=== PATIENT | male | born 1985 | race Caucasian/White ===

== ENCOUNTER → 2022-06-14 | Emergency (ER) | payer BC ==
[~2022-06-14] VITALS: Ht 175.3 cm; Wt 90.9 kg
[~2022-06-14] MED LIST: ATIVAN 0.50.5 MG/TAB PO; NO HOME MEDICATIONS; VITAMINS
[2022-06-14 17:40] VITALS: BP 141/94; PULSE 93; TEMP 98
[2022-06-14 18:23] LABS: BASO % 0.5 % (0.0-2.0); EOS # 0.1 K/mm3 (0.0-0.7); EOS % 1.4 % (0.0-4.0); GRAN # 4.4 K/mm3 (1.4-6.5); GRAN % 59.7 % (42.2-75.2); HEMATOCRIT 43.2 % (42.0-52.0); HEMOGLOBIN 15.4 g/dl (13.5-18.0); LYMPH # 2.1 K/mm3 (1.2-3.4); LYMPH % 28.4 % (20.0-51.0); MEAN CELL VOLUME 93 fl (80.0-100.0); MEAN CORPUSCULAR HEMOGLOBIN 33 pg (27-31); MEAN CORPUSCULAR HGB CONC 36 g/dl (33.0-37.0); MEAN PLATELET VOLUME 9.4 fl (7.4-10.4); MONO # 0.7 K/mm3 (0.1-0.6); MONO % 9.5 % (1.7-9.3); PLATELET COUNT 284 K/mm3 (130-400); RED BLOOD COUNT 4.63 M/mm3 (4.20-5.60); REDCELL DISTRIBUTION WIDTH-CV 11.7 % (11.5-14.5)
== END ==
LOC: COL.ER 17:25
PROVIDERS: Emergency Medicine
DX: M79.661 Pain in right lower leg (principal); R79.1 Abnormal coagulation profile; M79.89 Other specified soft tissue disorders; F17.200 Nicotine dependence, unspecified, uncomplicated; Z98.890 Other specified postprocedural states; Z79.82 Long term (current) use of aspirin
CPT/HCPCS: J1650

== ENCOUNTER → 2022-06-15 | Outpatient (CLI) | payer BC | LOC: COL.RAD 07:44 | DX: M79.661 Pain in right lower leg (principal) ==

== ENCOUNTER 2024-07-18 13:44 | Emergency (ER) | payer BC ==
[~2024-07-18] VITALS: Ht 175.3 cm; Wt 102.3 kg
[2024-07-18 14:10] VITALS: BP 150/105; PULSE 111; TEMP 98.5
== END 2024-07-18 16:47 | disposition left against medical advice (07) ==
LOC: COL.ER 13:44
DX: R53.81 Other malaise (principal); R00.2 Palpitations; E10.9 Type 1 diabetes mellitus without complications